=== PATIENT | female | born 1950 | race Caucasian/White ===

== ENCOUNTER 2017-09-16 13:15 | Emergency (ER) | payer MEDICARE, OTHER ==
[~2017-09-16] VITALS: Ht 154.9 cm; Wt 61.7 kg
[2017-09-16] MEDS ORDERED: LIPITOR40 MG PO (13:38)
[2017-09-16] MEDS ORDERED: CARVEDILOL6.25 MG PO (13:38)
[2017-09-16] MEDS ORDERED: COREG CR40 MG PO (13:38)
[2017-09-16] MEDS ORDERED: SPIRIVA RESPIMAT4 G1 IH (13:38)
[2017-09-16] MEDS ORDERED: PROAIR HFA8.5 GM INH (13:39)
[2017-09-16] MEDS ORDERED: TAMIFLU75 MG PO (14:58)
[2017-09-16] MEDS ORDERED: PREDNISONE20 MG PO (14:58)
== END 2017-09-16 17:23 | disposition home or self-care (01) ==
LOC: ED 13:15
DX: J44.1 Chronic obstructive pulmonary disease with (acute) exacerbation (principal); J10.1 Influenza due to other identified influenza virus with other respiratory manifestations; Z91.040 Latex allergy status; Z88.5 Allergy status to narcotic agent; Z79.899 Other long term (current) drug therapy
CPT/HCPCS: 71046; 80053; 85025; 87502; 94640; 96361; 96374; 99283; J2930; J7030

== ENCOUNTER 2018-09-17 18:11 | Emergency (ER) | payer MEDICARE, OTHER ==
[~2018-09-17] VITALS: Ht 154.9 cm; Wt 65.3 kg
[~2018-09-17 18:11] MED LIST: CARVEDILOL6.25 MG PO; COREG CR40 MG PO; LIPITOR40 MG PO; PREDNISONE20 MG PO; PROAIR HFA8.5 GM INH; SPIRIVA RESPIMAT4 G1 IH; TAMIFLU75 MG PO
[2018-09-17] MEDS ORDERED: SYMBICORT 16010.2 GM INH (18:32)
[2018-09-17] MEDS ORDERED: KEFLEX500 MG PO (19:20)
== END 2018-09-17 19:40 | disposition home or self-care (01) ==
LOC: ED 18:11
DX: H00.031 Abscess of right upper eyelid (principal); J44.9 Chronic obstructive pulmonary disease, unspecified; Z90.710 Acquired absence of both cervix and uterus; Z91.040 Latex allergy status; Z88.5 Allergy status to narcotic agent; Z79.899 Other long term (current) drug therapy
CPT/HCPCS: 99283

== ENCOUNTER 2019-01-15 19:18 | Emergency (ER) | payer MEDICARE, OTHER ==
[~2019-01-15] VITALS: Ht 154.9 cm; Wt 61.2 kg
[~2019-01-15 19:18] MED LIST changes: +KEFLEX500 MG PO; +SYMBICORT 16010.2 GM INH
--- OUTSIDE RECORDS SUMMARY | 2019-01-15 19:20 | XMS ---
PreManage Notification: KATHY CULP Security Foundry Technician Events No recent Security Events currently on file CRITERIA MET - PDMP CARE PROVIDERS AYAAN PALACIO [facility] Medicine: Sports Medicine Current PHONE: [phone] Su has no Care Guidelines for this patient. E.Abhishek VISIT COUNT (12 MO.) 2 [facility] TOTAL 2 NOTE: Visits indicate total known visits. ED/UCC VISIT TRACKING (12 MO.) 01/15/2019 19:19 [facility] [place] TYPE: Emergency COMPLAINT: - DIFFICULTY BREATHING 09/17/2018 18:12 [facility] [place] TYPE: Emergency COMPLAINT: - R EYE SWELLING/NON INJURY DIAGNOSES: - Abscess of right upper eyelid - Acquired absence of both cervix and uterus - Chronic obstructive pulmonary disease, unspecified - Latex allergy status - Other senior living (current) drug therapy - Erythematous condition, unspecified - Allergy status to narcotic agent status INPATIENT VISIT TRACKING (12 MO.) No inpatient visits to display in this time frame [id number]
[2019-01-15] MEDS ORDERED: SPIRIVA18 MCG INH (19:32)
[2019-01-15] MEDS ORDERED: LEVAQUIN750 MG PO (21:15)
--- NOTE | 2019-01-16 20:20 | EKG ---
[facility] [address] [place], [place] [address] Signed Normal sinus rhythm Left bundle branch block Abnormal ECG No previous ECGs available Confirmed by LUÍS CABALLERO MD ([id number]) on 01/16/2019 8:20:33 PM Electronically Signed By: LUÍS CABALLERO MD 01/16/19 2020 PATIENT NAME: KRUNAL SCHMITTKATHY Electrocardiogram DATE OF : 50 PHYSICIAN: LUÍS CABALLERO MD REPORT #: [id number] REPORT IS CONFIDENTIAL AND NOT TO BE RELEASED WITHOUT AUTHORIZATION
== END 2019-01-15 21:31 | disposition home or self-care (01) ==
LOC: ED 19:18
DX: J44.1 Chronic obstructive pulmonary disease with (acute) exacerbation (principal); Z87.891 Personal history of nicotine dependence; Z90.710 Acquired absence of both cervix and uterus; Z90.49 Acquired absence of other specified parts of digestive tract; Z91.040 Latex allergy status; Z88.5 Allergy status to narcotic agent; Z88.8 Allergy status to other drugs, medicaments and biological substances; Z79.899 Other long term (current) drug therapy
CPT/HCPCS: 71045; 80053; 83735; 83880; 84484; 85025; 93005; 93010; 94640; 96374; 99285-25; J2930

== ENCOUNTER 2019-02-04 15:47 | Emergency (ER) | payer MEDICARE, OTHER ==
[~2019-02-04] VITALS: Ht 154.9 cm; Wt 64.0 kg
[~2019-02-04 15:47] MED LIST changes: +LEVAQUIN750 MG PO; +SPIRIVA18 MCG INH
--- OUTSIDE RECORDS SUMMARY | 2019-02-04 15:50 | XMS ---
PreManage Notification: KATHY CULP Security Caseworker Protective Services Events No recent Security Events currently on file CRITERIA MET - [facility] - 2 Visits in 30 Days CARE PROVIDERS AYAAN PALACIO Family Medicine: Sports Medicine Current PHONE: [phone] Su has no Care Guidelines for this patient. Baljinder VISIT COUNT (12 MO.) 3 [facility] TOTAL 3 NOTE: Visits indicate total known visits. ED/UCC VISIT TRACKING (12 MO.) 02/04/2019 15:47 [facility] TYPE: Emergency COMPLAINT: - LEFT ARM PAIN/INJURY 01/15/2019 19:19 [facility] TYPE: Emergency COMPLAINT: - DIFFICULTY BREATHING DIAGNOSES: - Latex allergy status - Personal history of nicotine dependence - Chronic obstructive pulmonary disease with (acute) exacerbation - Acquired absence of both cervix and uterus - Allergy status to other drugs, medicaments and biological substances status - Shortness of breath - Allergy status to narcotic agent status - Acquired absence of other specified parts of digestive tract - Other fpc (current) drug therapy 09/17/2018 18:12 [facility] TYPE: Emergency COMPLAINT: - R EYE SWELLING/NON INJURY DIAGNOSES: - Abscess of right upper eyelid - Acquired absence of both cervix and uterus - Chronic obstructive pulmonary disease, unspecified - Latex allergy status - Other fpc (current) drug therapy - Erythematous condition, unspecified - Allergy status to narcotic agent status INPATIENT VISIT TRACKING (12 MO.) No inpatient visits to display in this time frame [id number]
[2019-02-04] MEDS ORDERED: KEFLEX500 MG PO (17:08)
== END 2019-02-04 17:26 | disposition home or self-care (01) ==
LOC: ED 15:47
DX: S51.832A Puncture wound without foreign body of left forearm, initial encounter (principal); L08.9 Local infection of the skin and subcutaneous tissue, unspecified; J44.9 Chronic obstructive pulmonary disease, unspecified; Z90.49 Acquired absence of other specified parts of digestive tract; Z90.710 Acquired absence of both cervix and uterus; Z88.5 Allergy status to narcotic agent; Z91.040 Latex allergy status; Z88.8 Allergy status to other drugs, medicaments and biological substances; Z87.891 Personal history of nicotine dependence; Z79.899 Other long term (current) drug therapy; X58.XXXA Exposure to other specified factors, initial encounter
CPT/HCPCS: 99282

== ENCOUNTER 2021-03-03 23:07 | Emergency (ER) | payer MEDICARE, OTHER ==
[~2021-03-03] VITALS: Ht 154.9 cm; Wt 64.0 kg
--- OUTSIDE RECORDS SUMMARY | 2021-03-03 23:10 | XMS ---
PreManage Notification: KATHY CULP Security Epic Manager Events No recent Security Events currently on file CRITERIA MET - PDMP CARE PROVIDERS AYAAN PALACIO [facility] Medicine: Sports Medicine Current PHONE: [phone] Su has no Care Guidelines for this patient. E.Abhishek VISIT COUNT (12 MO.) 1 [facility] TOTAL 1 NOTE: Visits indicate total known visits. ED/UCC VISIT TRACKING (12 MO.) 03/03/2021 23:08 [facility] TYPE: Emergency COMPLAINT: - BACK PAIN INPATIENT VISIT TRACKING (12 MO.) No inpatient visits to display in this time frame [id number]
[2021-03-03] MEDS ORDERED: TRELEGY ELLIPT1 EACH INH (23:41)
[2021-03-04] MEDS ORDERED: HYDROCODON-ACE1 EA10 PO (02:24)
[2021-03-04] MEDS ORDERED: DICLOFENAC SODI75 MG PO (02:24)
== END 2021-03-04 02:48 | disposition home or self-care (01) ==
LOC: ED 23:07
DX: M54.5 Low back pain (principal); J44.9 Chronic obstructive pulmonary disease, unspecified; Z88.8 Allergy status to other drugs, medicaments and biological substances; Z88.5 Allergy status to narcotic agent; Z91.040 Latex allergy status; Z79.899 Other long term (current) drug therapy
CPT/HCPCS: 72131; 99283-25

== ENCOUNTER 2023-08-09 13:22 | Emergency (ER) | payer MEDICARE, OTHER ==
[~2023-08-09] VITALS: Ht 154.9 cm; Wt 62.1 kg
[~2023-08-09 13:22] MED LIST changes: +DICLOFENAC SODI75 MG PO; +HYDROCODON-ACE1 EA10 PO; +HYDROCODON-ACE1 EA11 PO; +ONDANSETRON ODT8 MG PO; +TRELEGY ELLIPT1 EAC1 IH; +TRELEGY ELLIPT1 EACH INH
[2023-08-09] MEDS ORDERED: CEPHALEXIN500 M1 PO (16:26)
[2023-08-09 16:38] VITALS: BP 165/98
== END 2023-08-09 16:35 | disposition home or self-care (01) ==
LOC: ED 13:22
DX: S80.812A Abrasion, left lower leg, initial encounter (principal); L08.9 Local infection of the skin and subcutaneous tissue, unspecified; J44.9 Chronic obstructive pulmonary disease, unspecified; Z23 Encounter for immunization; Z88.5 Allergy status to narcotic agent; Z88.8 Allergy status to other drugs, medicaments and biological substances; Z91.040 Latex allergy status; Z79.51 Long term (current) use of inhaled steroids; Z79.899 Other long term (current) drug therapy; W26.8XXA Contact with other sharp object(s), not elsewhere classified, initial encounter
CPT/HCPCS: 90715

== ENCOUNTER 2024-08-27 14:46 | Emergency (ER) | payer MEDICARE, OTHER ==
[~2024-08-27] VITALS: Ht 154.9 cm; Wt 73.7 kg
[~2024-08-27 14:46] MED LIST changes: +CARVEDILOL12.5 MG PO; +CEPHALEXIN500 M1 PO; +DOXYCYCLINE HY100 MG PO; +VENTOLIN HFA18 GM INH
[2024-08-27] MEDS ORDERED: ACETAMINOPHEN 500 MG TAB PO ONE (15:00)
[2024-08-27] MEDS ORDERED: OXYCODONE/APAP 5/325 TAB PO ONE (16:00)
[2024-08-27 16:15] VITALS: BP 129/74
[2024-08-27] MEDS ORDERED: HYDROCODONE/ACETA 5/325 TAB PO ONE (16:15)
== END 2024-08-27 16:15 | disposition home or self-care (01) ==
LOC: ED 14:46
DX: S80.01XA Contusion of right knee, initial encounter (principal); J44.9 Chronic obstructive pulmonary disease, unspecified; Z88.5 Allergy status to narcotic agent; Z88.8 Allergy status to other drugs, medicaments and biological substances; Z91.040 Latex allergy status; Z79.51 Long term (current) use of inhaled steroids; Z79.899 Other long term (current) drug therapy; W18.30XA Fall on same level, unspecified, initial encounter
CPT/HCPCS: 73560; 99283

== ENCOUNTER 2025-04-04 11:11 | Emergency (ER) | payer OTHER, MEDICARE ==
[~2025-04-04] VITALS: Ht 154.9 cm; Wt 75.0 kg
--- OUTSIDE RECORDS SUMMARY | 2025-04-04 11:18 | XMS ---
PreManage Notification: KATHY CALDERA Security Foster Care Social Worker Events No recent Security Events currently on file CRITERIA MET - Group Notification - [facility] - 2 Visits in 30 Days CARE PROVIDERS AYAAN PALACIO Family Medicine: Sports Medicine 03/05/2021-Current PHONE: [phone] -[facility] Dentist: Employee'S Representative [facility] PHONE: [phone] -[facility] Dentist: Employee'S Representative [facility] PHONE: [phone] ДМИТРИЙ NICKERSON [facility] Current [employer] [facility] PHONE: Unknown Su has no Care Guidelines for this patient. Baljinder VISIT COUNT (12 MO.) 3 [facility] TOTAL 3 NOTE: Visits indicate total known visits. 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
[2025-04-04] MEDS ORDERED: HYDROCODONE/APAP 10/325 1 TAB PO ONE (15:15)
[2025-04-04] MEDS ORDERED: HYDROCODON-ACE1 EA10 PO (16:16)
[2025-04-04 16:37] VITALS: BP 158/70
== END 2025-04-04 16:41 | disposition home or self-care (01) ==
LOC: ED 11:11
DX: S82.445A Nondisplaced spiral fracture of shaft of left fibula, initial encounter for closed fracture (principal); W01.0XXA Fall on same level from slipping, tripping and stumbling without subsequent striking against object, initial encounter; Z79.51 Long term (current) use of inhaled steroids; Z91.040 Latex allergy status; Z88.5 Allergy status to narcotic agent; Z88.8 Allergy status to other drugs, medicaments and biological substances
CPT/HCPCS: 71250; 73590; 73610; 99284-25; A9270